=== PATIENT | male | born 1950 | race Caucasian/White ===

== ENCOUNTER 2020-07-08 04:23 | Emergency (ER) | payer MEDICARE ==
[~2020-07-08] VITALS: Ht 182.9 cm; Wt 109.5 kg
[2020-07-08] MEDS ORDERED: OMNIPAQUE 350 MG/ML, 100ML BOTTLE ONE (04:30)
--- NOTE | 2020-07-08 04:41 | NUR ---
pt taken directly to ct for scans. code neuro team activated upon pt arrival to er.
--- NOTE | 2020-07-08 04:43 | NUR ---
pt brought in from [place], last know well was when pt went to sleep last night around 2200. pt with significant left sided weakness in the upper and lower extremities.
[2020-07-08 05:08] LABS: BASOPHILS % (AUTO) 1 % (0-1); EOSINOPHILS % (AUTO) 0 % (1-7); LYMPHOCYTES % (AUTO) 28 % (22-44); MEAN CORPUSCULAR HEMOGLOBIN 34.1 pg (27.5-34.5); MEAN CORPUSCULAR HGB CONC 33.8 g/dL (33.2-36.2); MEAN PLATELET VOLUME 8.5 fL (7.4-10.4); MONOCYTES % (AUTO) 10 % (2-9); NEUTROPHILS % (AUTO) 61 % (42-75); PLATELET COUNT 201 x10^3/uL (130-400); RED BLOOD COUNT 4.64 x10^6/uL (4.38-5.82); RED CELL DISTRIBUTION WIDTH 13.1 % (9.4-14.8)
--- NOTE | 2020-07-08 05:11 | NUR ---
PT HAD VIDEO CONFERENCE WITH TELE NEUROLOGIST
[2020-07-08] MEDS ORDERED: LOSA25TA25 PO (05:13)
[2020-07-08] MEDS ORDERED: EZET10TA70 PO (05:13)
[2020-07-08] MEDS ORDERED: SPIR25TA5 PO (05:13)
[2020-07-08 05:19] LABS: MD NO
[2020-07-08 05:21] LABS: ALBUMIN 3.5 g/dL (3.4-5.0); ANION GAP 6 mmol/L (5-15); CALCIUM 8.7 mg/dL (8.5-10.1); CHLORIDE 104 mmol/L (98-107); CREATININE 0.99 mg/dL (0.7-1.3)
[2020-07-08 05:24] LABS: INTERNATIONAL NORMALIZED RATIO 0.95 (0.93-1.1); PROTHROMBIN TIME 10.2 Seconds (9.6-11.5); TROPONIN I < 0.015 ng/mL (0.000-0.045)
--- NOTE | 2020-07-08 05:30 | NUR ---
NIH stroke scale 20
[2020-07-08 05:40] VITALS: BP 143/76
--- NOTE | 2020-07-08 06:03 | NUR ---
pt emergently transfered to [facility]. accepting neorologist Driss and ER MD Tony. Dr de leon gave report to Chavo and I called report to the meteorologist in charge. Kuldip arrived for transport approximately 1 min after transport requested. pt in no distress and denying any pain.
== END 2020-07-08 06:14 | disposition home or self-care (01) ==
LOC: ED 05:36
DX: I63.311 Cerebral infarction due to thrombosis of right middle cerebral artery (principal); R47.1 Dysarthria and anarthria; G81.94 Hemiplegia, unspecified affecting left nondominant side; I10 Essential (primary) hypertension; R94.31 Abnormal electrocardiogram [ECG] [EKG]; E78.00 Pure hypercholesterolemia, unspecified
CPT/HCPCS: 36415; 70450; 70496; 70498; 71045; 80047; 80048; 82040; 82962; 84484; 85025; 85610; 85730; 93005; 99291; Q9967